=== PATIENT | male | born 1975 | race Caucasian/White ===

== ENCOUNTER 2016-09-16 10:43 | Emergency (ER) | payer OTHER ==
[~2016-09-16 10:43] MED LIST: ACETAMINOPHEN500 M3 PO; BACTRIM DS TABL1 TA1 PO; BACTRIM DS TABL1 TAB PO; CIPRO PO; DICLOFENAC PO; KEFLEX500 M1 PO; LEVAQUIN PO; LORTAB 5/500 TA1 TA1 PO; MOTRIN IB200 M1 PO; NO MEDICATIONS; TYLENOL #3 PO; VICODIN 5/500 T1 TAB PO
== END 2016-09-16 13:03 | disposition home or self-care (01) ==
LOC: SED 10:43
DX: S61.211A Laceration without foreign body of left index finger without damage to nail, initial encounter (principal); F17.210 Nicotine dependence, cigarettes, uncomplicated; W26.0XXA Contact with knife, initial encounter; Y92.009 Unspecified place in unspecified non-institutional (private) residence as the place of occurrence of the external cause
CPT/HCPCS: 12001; 99283

== ENCOUNTER 2016-09-16 19:15 | Emergency (ER) | payer OTHER | END 2016-09-16 20:04 | disposition home or self-care (01) | LOC: SED 19:15 | DX: S61.211D Laceration without foreign body of left index finger without damage to nail, subsequent encounter (principal); F17.210 Nicotine dependence, cigarettes, uncomplicated; X58.XXXD Exposure to other specified factors, subsequent encounter | CPT/HCPCS: 29130; 99281 ==